=== PATIENT | female | born 1965 | race Caucasian/White ===

== ENCOUNTER 2023-08-17 19:13 | Inpatient (IN) ==
[2023-08-17] MEDS ORDERED: Enoxaparin 40 MG/0.4 ML SYR SUBCUT SCH (22:00)
[2023-08-18] MEDS ORDERED: Albuterol/Ipratropium NEB.SOL (2.5/0.5 MG) 3 ML NEB.SOLN INH PRN (00:14)
[2023-08-18 03:16] VITALS: BP 118/73
[2023-08-18 06:37] LABS: Hematocrit 41.1 % (35-45); Mean Corpuscular Hemoglobin 28.9 pg (27-33); Mean Corpuscular Hgb Conc 34.1 g/dL (31-36); Mean Corpuscular Volume 84.6 fL (80-97); Mean Platelet Volume 8.2 fL (7.5-11.2); Platelet Count 257 10^3/uL (150-450); Red Blood Count 4.86 10^6/uL (3.63-4.92); Red Cell Distribution Width 14.9 % (12-17); White Blood Count 9.5 10^3/uL (3.8-11.8)
[2023-08-18 06:56] LABS: Calcium 9.6 mg/dL (8.6-10.3); Creatinine, Serum 0.89 mg/dL (0.51-0.95); Magnesium 2.1 mg/dL (1.9-2.7); Potassium 4.8 mmol/L (3.5-5.0)
[2023-08-18] MEDS ORDERED: Mometasone/Formoter 200/5 MDI INH SCH (07:00)
[2023-08-18] MEDS ORDERED: Albuterol/Ipratropium NEB.SOL (2.5/0.5 MG) 3 ML NEB.SOLN INH SCH (07:00)
[2023-08-18] MEDS ORDERED: Sodium Bicarbonate 8.4% VIAL 1 MEQ/ML 50 ml VIAL (50 meq) ONE (14:03)
== END 2023-08-18 12:38 | disposition left against medical advice (07) | DRG 137 ==
LOC: ED 19:13 → EDHOLD 21:06
PROVIDERS: ADMIT Internal Medicine; ATTEND Internal Medicine